=== PATIENT | male | born 1955 | race Caucasian/White ===

== ENCOUNTER 2018-11-20 00:10 | Emergency (ER) | payer SELFPAY ==
[~2018-11-20] VITALS: Ht 177.8 cm; Wt 107.0 kg
[2018-11-20 03:38] LABS: CHLORIDE 105 mEq/L (98-107)
[2018-11-20 03:39] LABS: BASOPHILS % 1.1 % (0.0-2.0); EOSINOPHILS % 3.6 % (0.0-5.0); HEMATOCRIT. 43.5 % (42.0-52.0); HEMOGLOBIN. 15.8 g/dL (14.0-18.0); MEAN CORPUSCULAR VOLUME 93.6 fL (80.0-94.0); MEAN PLATELET VOLUME 10.4 fl (7.4-10.4); NEUTROPHILS % 51.3 % (40.0-76.0); PLATELET 127 x1000/uL (130-400); RED BLOOD CELL COUNT 4.64 mill/uL (4.7-6.1); RED CELL DISTRIBUTION WIDTH 13.5 % (11.6-14.6)
[2018-11-20 04:59] VITALS: BP 179/87
== END 2018-11-20 06:10 | disposition home or self-care (01) ==
LOC: ER 02:49
DX: R20.0 Anesthesia of skin (principal); G58.8 Other specified mononeuropathies; I10 Essential (primary) hypertension; G43.909 Migraine, unspecified, not intractable, without status migrainosus; Z86.19 Personal history of other infectious and parasitic diseases; Z88.0 Allergy status to penicillin
CPT/HCPCS: 36415; 71045; 84484; 93005; 99284